=== PATIENT | female | born 2000 | race Caucasian/White ===

== ENCOUNTER → 2020-06-24 | Outpatient (CLI) | payer OTHER | END | disposition home or self-care (01) | LOC: LAB 11:28 → LAB SHORT 11:28 | DX: N39.0 Urinary tract infection, site not specified (principal); N92.6 Irregular menstruation, unspecified; R31.9 Hematuria, unspecified; R39.15 Urgency of urination; R35.0 Frequency of micturition; Z32.02 Encounter for pregnancy test, result negative | CPT/HCPCS: 84702 ==

== ENCOUNTER 2021-03-08 04:05 | Inpatient (IN) | payer BC ==
[~2021-03-08] VITALS: Ht 170.2 cm; Wt 82.7 kg
[2021-03-08 05:10] LABS: BASOPHILS ABSOLUTE AUTO 0.02 K/mm3 (0.00-0.23); BASOPHILS PERCENT AUTO 0 % (0-2); EOSINOPHILS ABSOLUTE AUTO 0.07 K/mm3 (0.00-0.68); EOSINOPHILS PERCENT AUTO 1 % (0-6); Hematocrit 38.2 % (33.0-51.0); Hemoglobin 12.7 g/dL (11.5-16.0); IMMATURE GRAN ABSOLUTE AUTO 0.05 K/mm3 (0.00-0.10); IMMATURE GRAN PERCENT AUTO 1 % (0-1); LYMPHOCYTES ABSOLUTE AUTO 2.42 K/mm3 (0.84-5.20); LYMPHOCYTES PERCENT AUTO 28 % (21-46); MONOCYTES ABSOLUTE AUTO 0.61 K/mm3 (0.16-1.47); MONOCYTES PERCENT AUTO 7 % (4-13); Mean Corpuscular HGB 29.1 pg (26.0-34.0); Mean Corpuscular HGB Conc 33.2 g/dL (31.5-36.5); Mean Corpuscular Volume 87 fL (80-100); Mean Platelet Volume 10.4 fL (9.1-12.4); NEUTROPHILS ABSOLUTE AUTO 5.37 K/mm3 (1.96-9.15); NEUTROPHILS PERCENT AUTO 63 % (41-73); Platelet Count 169 K/mm3 (150-400); RDW Coefficient Variation 13.6 % (11.7-14.2); RDW Standard Deviation 43.5 fL (35.1-46.3); Red Blood Cell Count 4.37 M/mm3 (3.80-5.20); White Blood Cell Count 8.54 K/mm3 (4.00-11.30)
[2021-03-08] MEDS ORDERED: PNV TABS 20-11 EACH PO (05:12)
[2021-03-08] MEDS ORDERED: IRON18 MG PO (05:13)
[2021-03-08 06:03] LABS: SARS-Cov-2 (COVID-19) PCR, MMC NEGATIVE (NEGATIVE)
[2021-03-09 05:31] LABS: BASOPHILS ABSOLUTE AUTO 0.02 K/mm3 (0.00-0.23); BASOPHILS PERCENT AUTO 0 % (0-2); EOSINOPHILS ABSOLUTE AUTO 0.03 K/mm3 (0.00-0.68); EOSINOPHILS PERCENT AUTO 0 % (0-6); Hematocrit 34.9 % (33.0-51.0); Hemoglobin 11.6 g/dL (11.5-16.0); IMMATURE GRAN ABSOLUTE AUTO 0.04 K/mm3 (0.00-0.10); IMMATURE GRAN PERCENT AUTO 0 % (0-1); LYMPHOCYTES ABSOLUTE AUTO 2.01 K/mm3 (0.84-5.20); LYMPHOCYTES PERCENT AUTO 17 % (21-46); MONOCYTES ABSOLUTE AUTO 0.72 K/mm3 (0.16-1.47); MONOCYTES PERCENT AUTO 6 % (4-13); Mean Corpuscular HGB 29.2 pg (26.0-34.0); Mean Corpuscular HGB Conc 33.2 g/dL (31.5-36.5); Mean Corpuscular Volume 88 fL (80-100); Mean Platelet Volume 10.3 fL (9.1-12.4); NEUTROPHILS ABSOLUTE AUTO 9.33 K/mm3 (1.96-9.15); NEUTROPHILS PERCENT AUTO 77 % (41-73); Platelet Count 129 K/mm3 (150-400); RDW Coefficient Variation 13.9 % (11.7-14.2); RDW Standard Deviation 44.5 fL (35.1-46.3); Red Blood Cell Count 3.97 M/mm3 (3.80-5.20); White Blood Cell Count 12.15 K/mm3 (4.00-11.30)
[2021-03-09] MEDS ORDERED: IBUP800 PO (07:33)
[2021-03-09] MEDS ORDERED: DOCU100 PO (07:33)
--- NOTE | 2021-03-09 20:41 | NUR ---
PARENTS BOTH VERBALIZE AN UNDERSTANDING OF ALL DISCHARGE INSTRUCTIONS. BANDS MATCH WITH BABY. PPFU APPT MADE.
== END 2021-03-09 21:15 | disposition home or self-care (01) | DRG 807 ==
LOC: BC 04:05 → OBS 04:05 → BC 04:54
PROVIDERS: Advanced Practice Midwife; ADMIT Nurse Practitioner Obstetrics & Gynecology
PROC: 10E0XZZ Delivery of Products of Conception, External Approach (ICD-10-PCS; principal; 2021-03-08)
PROC: 10H07YZ Insertion of Other Device into Products of Conception, Via Natural or Artificial Opening (ICD-10-PCS; 2021-03-08)
PROC: 0UQMXZZ Repair Vulva, External Approach (ICD-10-PCS; 2021-03-08)
PROC: 3E0R3BZ Introduction of Anesthetic Agent into Spinal Canal, Percutaneous Approach (ICD-10-PCS; 2021-03-08)
PROC: 00HU33Z Insertion of Infusion Device into Spinal Canal, Percutaneous Approach (ICD-10-PCS; 2021-03-08)
DX: O70.0 First degree perineal laceration during delivery (principal); Z37.0 Single live birth; Z3A.41 41 weeks gestation of pregnancy; O77.0 Labor and delivery complicated by meconium in amniotic fluid; Z20.822 Contact with and (suspected) exposure to COVID-19
CPT/HCPCS: 36415; 51702; 59070; 85025; 86850; 86900; 86901; A9270; J0290; J1885; J2001; J2210; J2405; J2590; J3010; J7030; J7120; U0004

== ENCOUNTER 2022-08-17 04:00 | Inpatient (IN) | payer OTHER ==
[~2022-08-17] VITALS: Ht 170.2 cm; Wt 80.9 kg
[~2022-08-17 04:00] MED LIST: CEPH500 PO; DOCU100 PO; IBUP800 PO; IRON18 MG PO; PNV TABS 20-11 EACH PO
[2022-08-17 09:42] LABS: BASOPHILS ABSOLUTE AUTO 0.01 K/mm3 (0.00-0.23); BASOPHILS PERCENT AUTO 0 % (0-2); EOSINOPHILS ABSOLUTE AUTO 0.03 K/mm3 (0.00-0.68); EOSINOPHILS PERCENT AUTO 1 % (0-6); Hematocrit 37.2 % (33.0-51.0); IMMATURE GRAN ABSOLUTE AUTO 0.01 K/mm3 (0.00-0.10); IMMATURE GRAN PERCENT AUTO 0 % (0-1); LYMPHOCYTES ABSOLUTE AUTO 1.42 K/mm3 (0.84-5.20); LYMPHOCYTES PERCENT AUTO 25 % (21-46); MONOCYTES ABSOLUTE AUTO 0.31 K/mm3 (0.16-1.47); MONOCYTES PERCENT AUTO 6 % (4-13); Mean Corpuscular HGB 28.3 pg (26.0-34.0); Mean Corpuscular HGB Conc 32.3 g/dL (31.5-36.5); Mean Corpuscular Volume 88 fL (80-100); Mean Platelet Volume 10.6 fL (9.1-12.4); NEUTROPHILS ABSOLUTE AUTO 3.86 K/mm3 (1.96-9.15); NEUTROPHILS PERCENT AUTO 68 % (41-73); Platelet Count 161 K/mm3 (150-400); RDW Coefficient Variation 13.1 % (11.7-14.2); Red Blood Cell Count 4.24 M/mm3 (3.80-5.20); White Blood Cell Count 5.64 K/mm3 (4.00-11.30)
[2022-08-17 11:56] LABS: PCO2 Cord - Arterial 76.1 mmHg (40-50); PO2 Cord - Arterial < 14 mmHg (16-20)
--- NOTE | 2022-08-17 11:59 | NUR ---
08/17/22 1159 Courtney Barnhart PT TO OR FOR EMERGENT CS UNDER GENERAL ANESTHESIA. VIABLE FEMALE BORN 1144; WEIGHT 3145 6 LBS 15 OZ; 13.5 CHEST; 13 HEAD; 19 LENGTH. CORD SEGMENT FOR FOR CORD GASES TO Isaiah AVILA RT. CORD BLOOD TO Mariano MACARIO RN.
[2022-08-17 12:00] LABS: PCO2 Cord - Venous 62.3 mmHg (40-50); PO2 Cord - Venous 27.6 mmHg (28-32); pH Umbilical Cord - Venous 7.24 (7.26-7.35)
--- NOTE | 2022-08-17 21:00 | NUR ---
IV LEAKING, DRESSING CHANGED AND 10ML NS FLUSHED WITH NO FURTHER LEAKING.
--- NOTE | 2022-08-17 22:18 | NUR ---
patient requested pain meds for pain. notified nurse. no other needs at this time.
--- NOTE | 2022-08-18 05:49 | NUR ---
Patient is showered and has no needs at this time.
[2022-08-18 07:21] LABS: BASOPHILS ABSOLUTE AUTO 0.01 K/mm3 (0.00-0.23); BASOPHILS PERCENT AUTO 0 % (0-2); EOSINOPHILS ABSOLUTE AUTO 0.05 K/mm3 (0.00-0.68); EOSINOPHILS PERCENT AUTO 1 % (0-6); Hematocrit 30.3 % (33.0-51.0); Hemoglobin 9.7 g/dL (11.5-16.0); IMMATURE GRAN ABSOLUTE AUTO 0.03 K/mm3 (0.00-0.10); IMMATURE GRAN PERCENT AUTO 0 % (0-1); LYMPHOCYTES ABSOLUTE AUTO 1.65 K/mm3 (0.84-5.20); LYMPHOCYTES PERCENT AUTO 20 % (21-46); MONOCYTES ABSOLUTE AUTO 0.39 K/mm3 (0.16-1.47); MONOCYTES PERCENT AUTO 5 % (4-13); Mean Corpuscular HGB 28.2 pg (26.0-34.0); Mean Corpuscular Volume 88 fL (80-100); Mean Platelet Volume 10.4 fL (9.1-12.4); NEUTROPHILS ABSOLUTE AUTO 5.99 K/mm3 (1.96-9.15); NEUTROPHILS PERCENT AUTO 74 % (41-73); Platelet Count 161 K/mm3 (150-400); RDW Coefficient Variation 13.2 % (11.7-14.2); RDW Standard Deviation 42.5 fL (35.1-46.3); Red Blood Cell Count 3.44 M/mm3 (3.80-5.20); White Blood Cell Count 8.12 K/mm3 (4.00-11.30)
[2022-08-18] MEDS ORDERED: IBUP800 PO (07:56)
--- NOTE | 2022-08-18 18:39 | NUR ---
REPORT TO ONCOMING SHIFT, NO ACUTE CHANGES.
== END 2022-08-19 12:04 | disposition home or self-care (01) | DRG 788 ==
LOC: BC 04:00 → OBS 04:00 → BC 08:38
PROVIDERS: Obstetrics & Gynecology; ADMIT Nurse Practitioner Obstetrics & Gynecology
PROC: 10D00Z1 Extraction of Products of Conception, Low, Open Approach (ICD-10-PCS; principal; 2022-08-17 11:00)
DX: O74.6 Other complications of spinal and epidural anesthesia during labor and delivery (principal); R06.00 Dyspnea, unspecified; Z37.0 Single live birth; Z3A.39 39 weeks gestation of pregnancy; Z79.899 Other long term (current) drug therapy
CPT/HCPCS: 31500; 36415; 51702; 59025; 74018; 81003; 82803; 85025; 85460; 86850; 86870; 86900; 86901; 96372; A9270; J0690; J1885; J2210; J2250; J2270; J2370; J2405; J2704; J2765; J2791; J3010; J7120